=== PATIENT | male | born 1955 | race American Indian/Alaskan Native ===

== ENCOUNTER 2021-10-01 06:01 | Emergency (ER) | payer MEDICARE ==
--- NOTE | 2021-10-01 16:52 | Emergency Department Report ---
ED General Adult HPI - General Chief complaint: Dyspnea/Respdistress Stated complaint: HERMELINDA PUI?: No Time Seen by Provider: 10/01/21 16:47 Source: patient Mode of arrival: Ambulatory Limitations: No Limitations - History of Present Illness Initial comments: 66-year-old -[place] male presents to the emergency room complaining of hiccups since Tuesday and a slight cough. Patient states he has taken [id number] Brittney-[place] plus and reports he seems like it made it worse. Patient reports a history of hypertension but stopped taking his medication and has not followed back up with his primary care provider. Patient also reports a history of acid reflux and not taking any meds for that. Patient reports he smokes cigarettes but does not drink alcohol. Patient denies any chest pain intermittent shortness of breath with hiccup. States he started having a little back pain today. He denies any dysuria no urinary frequency or urgency. 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 It was noted the patient's blood pressure was 215/122 this morning. Onset/Timin -: days(s) Radiation: non-radiation Consistency: intermittent Improves with: none Worsens with: none Associated Symptoms: shortness of breath (Only with hiccups). denies: cough, diaphoresis, fever/chills, malaise, nausea/vomiting, weakness - Related Data Previous Rx's Medication Instructions Recorded Last Taken Type Docusate Sodium [Colace] 100 mg PO BID #60 capsule 01/29/15 Unknown Rx Ibuprofen [Motrin 600 MG tab] 600 mg PO Q8H PRN #30 tablet 01/29/15 Unknown Rx amLODIPine 10 mg PO DAILY #30 tab 01/29/15 Unknown Rx oxyCODONE /ACETAMINOPHEN [Percocet 1 tab PO Q6HR PRN #10 tablet 01/29/15 Unknown Rx 5/325] Omeprazole 20 mg PO QDAY #30 tablet. 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 - Social History Smoking Status: Current Every Day Smoker Substance Use Type: None - Medications Home Medications: Home Medications Medication Instructions Recorded Confirmed Last Taken Type Docusate Sodium [Colace] 100 mg PO BID #60 capsule 01/29/15 Unknown Rx Ibuprofen [Motrin 600 MG tab] 600 mg PO Q8H PRN #30 tablet 01/29/15 Unknown Rx amLODIPine 10 mg PO DAILY #30 tab 01/29/15 Unknown Rx oxyCODONE /ACETAMINOPHEN [Percocet 1 tab PO Q6HR PRN #10 tablet 01/29/15 Unknown Rx 5/325] Omeprazole 20 mg PO QDAY #30 tablet.dr 10/01/21 Unknown Rx amLODIPine 5 mg PO DAILY #30 tab 10/01/21 Unknown Rx ED Physical Exam - General Limitations: No Limitations General appearance: alert, in no apparent distress - Head Head exam: Present: atraumatic, normocephalic - Eye Eye exam: Present: normal appearance - ENT ENT exam: Present: mucous membranes moist - Neck Neck exam: Present: normal inspection - Respiratory Respiratory exam: Present: normal lung sounds bilaterally. Absent: respiratory distress - Cardiovascular Cardiovascular Exam: Present: regular rate, normal rhythm. Absent: systolic murmur, diastolic murmur, rubs, gallop - GI/Abdominal GI/Abdominal exam: Present: soft, normal bowel sounds. Absent: distended, tenderness - Rectal Rectal exam: Present: deferred - Extremities Exam Extremities exam: Present: normal inspection - Back Exam Back exam: Present: normal inspection - Neurological Exam Neurological exam: Present: alert, oriented X3 - Psychiatric Psychiatric exam: Present: normal affect, normal mood - Skin Skin exam: Present: warm, dry, intact, normal color. Absent: rash ED Course Vital Signs 10/01/21 06:04 Temperature 98.0 F Pulse Rate 70 Respiratory 18 Rate Blood Pressure 215/122 O2 Sat by Pulse 99 Oximetry ED Medical Decision Making - Medical Decision Making 66-year-old -[place] male presents to the emergency room complaining of hiccups since Tuesday and a slight cough. Patient states he has taken [id number] Britt[place] plus and reports he seems like it made it worse. Patient reports a history of hypertension but stopped taking his medication and has not followed back up with his primary care provider. Patient also reports a history of acid reflux and not taking any meds for that. Patient reports he smokes cigarettes but does not drink alcohol. Patient denies any chest pain intermittent shortness of breath with hiccup. States he started having a little back pain today. He denies any dysuria no urinary frequency or urgency. 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 It was noted the patient's blood pressure was 215/122 this morning. Patient most likely has hiccups from acid reflux. Will recommend omeprazole [id number]. Encourage patient to stop smoking. Discussed with patient he needs to follow-up with a primary care provider as he is blood pressure is elevated. Critical care attestation.: If time is entered above; I have spent that time in minutes in the direct care of this critically ill patient, excluding procedure time. ED Disposition Clinical Impression: Uncontrolled hypertension, Hiccups, Acid reflux Disposition: 01 HOME / SELF CARE / HOMELESS Is pt being admited?: No Does the pt Need Aspirin: No Condition: Undetermined Instructions: Hypertension (ED), Hypertension, Adult, [id number], Food Choices for Gastroesophageal Reflux Disease, Adult Additional Instructions: Your blood pressure is very high 215/122. Is very important you take this blood pressure medication. Also placing you on an acid reflux medicine as this helps with hiccups as well. Stop smoking will improve your symptoms. Follow-up with a primary care provider as I am only giving you 1 month worth of medication. I have listed several providers below for your convenience. Prescriptions: amLODIPine 5 mg PO DAILY #30 tab Omeprazole 20 mg PO QDAY #30 tablet. Referrals: CONSTANTINE KELLER MD [Primary Care Provider] - 3-5 Days FRITZ YIN MD [Staff Physician] - 3-5 Days SUSANA MUNIZ MD [Staff Physician] - 3-5 Days Time of Disposition: 16:55
[2021-10-01 17:52] VITALS: BP 210/113
== END 2021-10-01 17:51 | disposition home or self-care (01) ==
LOC: ED 08:45
DX: I10 Essential (primary) hypertension (principal); R06.6 Hiccough; K21.9 Gastro-esophageal reflux disease without esophagitis; F17.200 Nicotine dependence, unspecified, uncomplicated
CPT/HCPCS: 99282